=== PATIENT | female | born 1980 ===

== ENCOUNTER 2024-04-25 13:48 | Inpatient (IN) ==
[2024-04-25] MEDS ORDERED: IOPAMIDOL 100 ML BOTTLE IV ONE (13:49)
[2024-04-25] MEDS: 0.9 % SODIUM CHLORIDE 1,000 ML IV ONE ×2 (14:23→21:56)
[2024-04-25 14:37] LABS: Basophils # (Auto) 0.03 K/mcL (0.00-0.30); Basophils % (Auto) 0.3 % (0.0-2.0); Eosinophils # (Auto) 0.08 K/mcL (0.00-0.70); Eosinophils % (Auto) 0.8 % (0.0-7.0); Hematocrit 41.1 % (34.1-44.9); Hemoglobin 14.1 g/dL (11.2-15.7); Lymphocytes # (Auto) 2.54 K/mcL (1.50-4.80); Lymphocytes % (Auto) 26.9 % (15.5-49.0); Mean Cell Volume 89.3 fL (80.0-100.0); Mean Corpuscular HGB Conc 34.3 g/dL (31.0-36.0); Mean Platelet Volume 11.1 fL (8.8-12.5); Monocytes # (Auto) 0.33 K/mcL (0.10-0.90); Monocytes % (Auto) 3.5 % (1.0-12.0); Platelet Count 593 K/mcL (140-440); Red Cell Distribution Width 12.6 % (11.5-14.5); WBC 9.4 K/mcL (4.5-11.0)
[2024-04-25] MEDS: IPRATROPIUM/ALBUTEROL 3 ML AMPUL.NEB NEB ONE (15:31)
[2024-04-25 15:58] LABS: ALT/SGPT 13 U/L (<40); AST/SGOT 26 U/L (<32); Albumin 3.2 gm/dL (3.2-5.2); Albumin/Globulin Ratio 0.9 (1.0-2.3); Alkaline Phosphatase 50 U/L (39-117); Bilirubin,Total 0.4 mg/dL (0.1-1.0); Blood Urea Nitrogen 10 mg/dL (6-20); Calcium 8.4 mg/dL (8.6-10.4); Carbon Dioxide 25 mmol/L (22-30); Chloride 100 mmol/L (96-108); Globulin 3.6 gm/dL (2.2-3.7); Glomerular Filtration Rate 107; Glucose 90 mg/dL (70-105); Potassium 2.6 mmol/L (3.3-5.1); Sodium 140 mmol/L (133-145)
[2024-04-25] MEDS: POTASSIUM CHLORIDE 20 MEQ TABLET PO ONE (16:15)
[2024-04-25] MEDS: POTASSIUM CHLORIDE 20 MEQ PACKET PO ONE (16:53)
[2024-04-25] MEDS: cefTRIAXone 1 GM VIAL IV ONE (17:33)
[2024-04-25] MEDS: AZITHROMYCIN 250 MG TABLET PO ONE (17:33)
[2024-04-25] MEDS: methylPREDNISolone SOD SUCC 125 MG/2 ML VIAL IV ONE (18:35)
[2024-04-25 19:17] LABS: Blood Urea Nitrogen 8 mg/dL (6-20); Calcium 8.7 mg/dL (8.6-10.4); Carbon Dioxide 23 mmol/L (22-30); Chloride 99 mmol/L (96-108); Glomerular Filtration Rate 112; Glucose 120 mg/dL (70-105); Potassium 3.1 mmol/L (3.3-5.1); Sodium 137 mmol/L (133-145)
[2024-04-25 20:30] LABS: Band Neutrophils % 4 % (0-10); Basophils % (Manual) 1 % (0-2); Eosinophils % (Manual) 2 % (0-7); Lymphocytes % 20 % (15-49); Microcytosis 1+ (None Seen); Monocytes % (Manual) 6 % (1-12); Platelet Estimate INCREASED (Normal); RBC Morphology ABNORMAL (Normal); Reactive Lymphocytes 3 % (0-2); Segmented Neutrophils % 64 % (38-78)
[2024-04-25] MEDS ORDERED: MAGNESIUM SULFATE 2 GM/50 ML BAG IV PRN (20:37)
[2024-04-25] MEDS ORDERED: POTASSIUM CHLORIDE 20 MEQ TABLET PO PRN ×2 (20:37)
[2024-04-25] MEDS ORDERED: METOCLOPRAMIDE 10 MG/2 ML VIAL IV PRN (20:37)
[2024-04-25] MEDS ORDERED: POTASSIUM CHLORIDE 40 MEQ in DEXTROSE 5% IN WATER 500 ML IV PRN (20:37)
[2024-04-25] MEDS ORDERED: IPRATROPIUM/ALBUTEROL 3 ML AMPUL.NEB NEB PRN (20:37)
[2024-04-25] MEDS: 0.9 % SODIUM CHLORIDE 10 ML SYRINGE IV SCH (21:56)
[2024-04-26 06:20] LABS: ALT/SGPT 12 U/L (<40); AST/SGOT 18 U/L (<32); Albumin 3.3 gm/dL (3.2-5.2); Albumin/Globulin Ratio 0.9 (1.0-2.3); Alkaline Phosphatase 52 U/L (39-117); Bilirubin,Direct < 0.2 mg/dL (0-0.3); Bilirubin,Total 0.3 mg/dL (0.1-1.0); Blood Urea Nitrogen 8 mg/dL (6-20); Carbon Dioxide 23 mmol/L (22-30); Chloride 105 mmol/L (96-108); Globulin 3.7 gm/dL (2.2-3.7); Glomerular Filtration Rate 119; Glucose 144 mg/dL (70-105); Lactate Dehydrogenase 105 U/L (135-225); Phosphorous 3.1 mg/dL (2.5-4.5); Potassium 3.9 mmol/L (3.3-5.1); Sodium 141 mmol/L (133-145); Triglycerides 73 mg/dL (<150)
[2024-04-26 06:53] LABS: Basophils # (Auto) 0.01 K/mcL (0.00-0.30); Basophils % (Auto) 0.1 % (0.0-2.0); Eosinophils # (Auto) 0 K/mcL (0.00-0.70); Eosinophils % (Auto) 0 % (0.0-7.0); Hemoglobin 11.5 g/dL (11.2-15.7); Lymphocytes # (Auto) 0.77 K/mcL (1.50-4.80); Lymphocytes % (Auto) 9.8 % (15.5-49.0); Mean Cell Volume 89.7 fL (80.0-100.0); Mean Corpuscular HGB Conc 33.8 g/dL (31.0-36.0); Monocytes # (Auto) 0.08 K/mcL (0.10-0.90); Neutrophils % (Auto) 88.6 % (38.0-78.0); Platelet Count 624 K/mcL (140-440); RBC 3.79 M/mcL (3.59-5.38); Red Cell Distribution Width 12.5 % (11.5-14.5); WBC 7.9 K/mcL (4.5-11.0)
[2024-04-26] MEDS: cefTRIAXone 1 GM VIAL IV SCH (09:50)
[2024-04-26] MEDS: morphine 4 MG/ML VIAL IV PRN (09:50)
[2024-04-26] MEDS: ENOXAPARIN 40 MG/0.4 ML SYRINGE SQ SCH (09:50)
[2024-04-26] MEDS: POLYETHYLENE GLYCOL 3350 17 GM PACKET PO PRN (09:51)
[2024-04-26] MEDS: AZITHROMYCIN 500 MG in 0.9 % SODIUM CHLORIDE 250 ML IV SCH (11:42)
[2024-04-26] MEDS: AZITHROMYCIN 250 MG TABLET PO SCH (13:36)
[2024-04-26] MEDS: DOXYCYCLINE HYCLATE 100 MG TABLET.ORL PO SCH (20:20)
[2024-04-27 06:26] LABS: Basophils # (Auto) 0.01 K/mcL (0.00-0.30); Basophils % (Auto) 0.1 % (0.0-2.0); Eosinophils # (Auto) 0 K/mcL (0.00-0.70); Eosinophils % (Auto) 0 % (0.0-7.0); Hematocrit 33.9 % (34.1-44.9); Hemoglobin 11.4 g/dL (11.2-15.7); Lymphocytes # (Auto) 1.81 K/mcL (1.50-4.80); Lymphocytes % (Auto) 12.9 % (15.5-49.0); Mean Cell Volume 91.9 fL (80.0-100.0); Mean Corpuscular HGB Conc 33.6 g/dL (31.0-36.0); Mean Platelet Volume 8.9 fL (8.8-12.5); Monocytes # (Auto) 0.37 K/mcL (0.10-0.90); Monocytes % (Auto) 2.6 % (1.0-12.0); Neutrophils % (Auto) 83.9 % (38.0-78.0); Platelet Count 674 K/mcL (140-440); RBC 3.69 M/mcL (3.59-5.38)
[2024-04-27 06:47] LABS: ALT/SGPT 11 U/L (<40); AST/SGOT 24 U/L (<32); Albumin 3.2 gm/dL (3.2-5.2); Albumin/Globulin Ratio 0.9 (1.0-2.3); Alkaline Phosphatase 51 U/L (39-117); Bilirubin,Direct < 0.2 mg/dL (0-0.3); Bilirubin,Total 0.3 mg/dL (0.1-1.0); Blood Urea Nitrogen 8 mg/dL (6-20); Calcium 9.2 mg/dL (8.6-10.4); Carbon Dioxide 23 mmol/L (22-30); Chloride 105 mmol/L (96-108); Globulin 3.5 gm/dL (2.2-3.7); Glomerular Filtration Rate 119; Glucose 124 mg/dL (70-105); Lactate Dehydrogenase 105 U/L (135-225); Phosphorous 2.7 mg/dL (2.5-4.5); Potassium 3.5 mmol/L (3.3-5.1); Sodium 139 mmol/L (133-145); Triglycerides 138 mg/dL (<150); Uric Acid 3.5 mg/dL (2.5-8.0)
[2024-04-27] MEDS: ACETAMINOPHEN 325 MG TABLET PO PRN (09:23)
[2024-04-27] MEDS: SENNOSIDES 1 TABLET PO PRN (09:23)
[2024-04-27] MEDS ORDERED: cefTRIAXone 1 GM VIAL IV SCH (09:30)
[2024-04-27] MEDS: FUROSEMIDE 20 MG/2 ML VIAL IV ONE (10:26)
[2024-04-27] MEDS: DOXYCYCLINE 100 MG in DEXTROSE 5% IN WATER 100 ML IV SCH (10:26)
[2024-04-27] MEDS: BENZONATATE 100 MG CAPSULE PO SCH (10:27)
[2024-04-27] MEDS: IPRATROPIUM/ALBUTEROL 3 ML AMPUL.NEB NEB SCH (10:35)
[2024-04-27] MEDS: guaiFENesin/CODEINE 10 ML UDC PO PRN (11:29)
[2024-04-27] MEDS: cefTRIAXone 2 GM in DEXTROSE 5% IN WATER 50 ML IV SCH (11:30)
[2024-04-27] MEDS: 0.9 % SODIUM CHLORIDE 500 ML IV ONE (21:15)
[2024-04-27] MEDS: 0.9 % SODIUM CHLORIDE 1,000 ML IV SCH (21:16)
[2024-04-28 06:52] LABS: Basophils # (Auto) 0.01 K/mcL (0.00-0.30); Basophils % (Auto) 0.1 % (0.0-2.0); Eosinophils # (Auto) 0.01 K/mcL (0.00-0.70); Eosinophils % (Auto) 0.1 % (0.0-7.0); Hematocrit 31.5 % (34.1-44.9); Hemoglobin 10.4 g/dL (11.2-15.7); Lymphocytes # (Auto) 2.99 K/mcL (1.50-4.80); Lymphocytes % (Auto) 40.7 % (15.5-49.0); Mean Cell Volume 92.9 fL (80.0-100.0); Mean Platelet Volume 8.9 fL (8.8-12.5); Monocytes # (Auto) 0.27 K/mcL (0.10-0.90); Monocytes % (Auto) 3.7 % (1.0-12.0); Neutrophils % (Auto) 54.4 % (38.0-78.0); Platelet Count 577 K/mcL (140-440); RBC 3.39 M/mcL (3.59-5.38); Red Cell Distribution Width 13.1 % (11.5-14.5); WBC 7.3 K/mcL (4.5-11.0)
[2024-04-28 07:05] LABS: ALT/SGPT 20 U/L (<40); AST/SGOT 35 U/L (<32); Albumin 3.2 gm/dL (3.2-5.2); Albumin/Globulin Ratio 1.1 (1.0-2.3); Alkaline Phosphatase 46 U/L (39-117); Bilirubin,Direct < 0.2 mg/dL (0-0.3); Bilirubin,Total 0.2 mg/dL (0.1-1.0); Blood Urea Nitrogen 10 mg/dL (6-20); Calcium 8.9 mg/dL (8.6-10.4); Carbon Dioxide 23 mmol/L (22-30); Chloride 105 mmol/L (96-108); Globulin 2.8 gm/dL (2.2-3.7); Glomerular Filtration Rate 112; Glucose 87 mg/dL (70-105); Lactate Dehydrogenase 83 U/L (135-225); Phosphorous 4.6 mg/dL (2.5-4.5); Potassium 3.1 mmol/L (3.3-5.1); Sodium 142 mmol/L (133-145); Triglycerides 112 mg/dL (<150); Uric Acid 4.7 mg/dL (2.5-8.0)
[2024-04-28] MEDS: HYDROcodone/APAP 10/325MG TABLET PO PRN (08:30)
[2024-04-28] MEDS: CITALOPRAM 20 MG TABLET PO SCH (08:31)
[2024-04-28] MEDS: buPROPion 150 MG TAB.XL.24H PO SCH (08:31)
[2024-04-28] MEDS: POTASSIUM CHLORIDE 20 MEQ TABLET PO ONE ×2 (08:37→21:17)
[2024-04-28 13:25] LABS: Potassium 3.2 mmol/L (3.3-5.1)
[2024-04-28] MEDS: POTASSIUM CHLORIDE 20 MEQ PACKET PO ONE (15:21)
[2024-04-28] MEDS: ONDANSETRON 4 MG/2 ML VIAL IV PRN (15:21)
[2024-04-28 18:57] LABS: Potassium 3.3 mmol/L (3.3-5.1)
[2024-04-29 06:43] LABS: Basophils # (Auto) 0.03 K/mcL (0.00-0.30); Basophils % (Auto) 0.5 % (0.0-2.0); Eosinophils # (Auto) 0.03 K/mcL (0.00-0.70); Eosinophils % (Auto) 0.5 % (0.0-7.0); Hematocrit 33.4 % (34.1-44.9); Hemoglobin 10.8 g/dL (11.2-15.7); Lymphocytes # (Auto) 3.11 K/mcL (1.50-4.80); Lymphocytes % (Auto) 52.5 % (15.5-49.0); Mean Cell Volume 94.4 fL (80.0-100.0); Mean Corpuscular HGB Conc 32.3 g/dL (31.0-36.0); Mean Platelet Volume 8.8 fL (8.8-12.5); Monocytes # (Auto) 0.24 K/mcL (0.10-0.90); Monocytes % (Auto) 4.1 % (1.0-12.0); Neutrophils % (Auto) 41.4 % (38.0-78.0); Platelet Count 595 K/mcL (140-440); RBC 3.54 M/mcL (3.59-5.38); Red Cell Distribution Width 13.3 % (11.5-14.5); WBC 5.9 K/mcL (4.5-11.0)
[2024-04-29 06:52] LABS: ALT/SGPT 18 U/L (<40); AST/SGOT 28 U/L (<32); Albumin 3.2 gm/dL (3.2-5.2); Albumin/Globulin Ratio 1.1 (1.0-2.3); Alkaline Phosphatase 45 U/L (39-117); Bilirubin,Direct < 0.2 mg/dL (0-0.3); Bilirubin,Total 0.3 mg/dL (0.1-1.0); Blood Urea Nitrogen 13 mg/dL (6-20); Calcium 8.9 mg/dL (8.6-10.4); Carbon Dioxide 24 mmol/L (22-30); Chloride 105 mmol/L (96-108); Globulin 2.9 gm/dL (2.2-3.7); Glomerular Filtration Rate 112; Glucose 83 mg/dL (70-105); Lactate Dehydrogenase 84 U/L (135-225); Phosphorous 3.7 mg/dL (2.5-4.5); Potassium 4.1 mmol/L (3.3-5.1); Sodium 138 mmol/L (133-145); Triglycerides 123 mg/dL (<150); Uric Acid 4.5 mg/dL (2.5-8.0)
[2024-04-29] MEDS: CEFDINIR 300 MG CAPSULE PO SCH (09:50)
[2024-04-29] MEDS: POTASSIUM CHLORIDE 10 MEQ/100 ML BAG IV SCH (09:52)
[2024-04-29] MEDS: FUROSEMIDE 40 MG/4 ML VIAL IV ONE (09:57)
[2024-04-29] MEDS: POTASSIUM CHLORIDE 20 MEQ PACKET PO ONE (14:31)
[2024-04-29] MEDS: POTASSIUM CHLORIDE 40 MEQ in DEXTROSE 5% IN WATER 500 ML IV ONE (14:33)
[2024-04-29] MEDS: POTASSIUM CHLORIDE 20 MEQ TABLET PO SCH (17:00)
[2024-04-29] MEDS: DOXYCYCLINE 100 MG in DEXTROSE 5% IN WATER 100 ML IV SCH (23:17)
[2024-04-30 07:16] LABS: Basophils # (Auto) 0.03 K/mcL (0.00-0.30); Basophils % (Auto) 0.5 % (0.0-2.0); Eosinophils # (Auto) 0.04 K/mcL (0.00-0.70); Eosinophils % (Auto) 0.6 % (0.0-7.0); Hematocrit 35.7 % (34.1-44.9); Hemoglobin 11.7 g/dL (11.2-15.7); Lymphocytes # (Auto) 3.01 K/mcL (1.50-4.80); Lymphocytes % (Auto) 48.5 % (15.5-49.0); Mean Corpuscular HGB Conc 32.8 g/dL (31.0-36.0); Mean Platelet Volume 8.9 fL (8.8-12.5); Monocytes # (Auto) 0.21 K/mcL (0.10-0.90); Monocytes % (Auto) 3.4 % (1.0-12.0); Platelet Count 645 K/mcL (140-440); RBC 3.84 M/mcL (3.59-5.38); Red Cell Distribution Width 13.2 % (11.5-14.5); WBC 6.2 K/mcL (4.5-11.0)
[2024-04-30 07:22] LABS: ALT/SGPT 21 U/L (<40); AST/SGOT 28 U/L (<32); Albumin 3.5 gm/dL (3.2-5.2); Albumin/Globulin Ratio 1.1 (1.0-2.3); Alkaline Phosphatase 50 U/L (39-117); Bilirubin,Direct < 0.2 mg/dL (0-0.3); Bilirubin,Total 0.3 mg/dL (0.1-1.0); Blood Urea Nitrogen 14 mg/dL (6-20); Carbon Dioxide 25 mmol/L (22-30); Chloride 102 mmol/L (96-108); Globulin 3.2 gm/dL (2.2-3.7); Glomerular Filtration Rate 119; Glucose 91 mg/dL (70-105); Lactate Dehydrogenase 86 U/L (135-225); Potassium 4.3 mmol/L (3.3-5.1); Sodium 139 mmol/L (133-145); Triglycerides 129 mg/dL (<150); Uric Acid 4.8 mg/dL (2.5-8.0)
[2024-04-30] MEDS: DOXYCYCLINE HYCLATE 100 MG TABLET.ORL PO SCH (10:13)
[2024-04-30 11:46] VITALS: TEMP 97.5; O2SAT 93
== END 2024-04-30 12:09 | disposition home or self-care (01) | DRG 871 ==
LOC: ED 13:48 → MEDSUR 20:34
PROVIDERS: ADMIT Internal Medicine; ATTEND Internal Medicine